=== PATIENT | female | born 1935 | race Caucasian/White ===

== ENCOUNTER 2019-01-03 21:09 | Inpatient (IN) | payer MEDICARE ==
--- NOTE | 2019-01-03 21:51 | EKG REPORT ---
SEVERITY:- ABNORMAL ECG - ATRIAL FIBRILLATION, V-RATE [id number] RIGHT AXIS DEVIATION ABNORMAL T, CONSIDER ISCHEMIA, INFERIOR LEADS : Confirmed by: Salima Macdonald MD 03-Jan-2019 21:51:25
--- NOTE | 2019-01-03 22:16 | RADIOLOGY REPORT (SQ) ---
XR CHEST 1 VIEW HISTORY: Hypotension. COMPARISON: 03/16/2016 FINDINGS: The heart size is mildly enlarged. No consolidation, pleural effusion, or pneumothorax is seen. There are no acute bony findings. IMPRESSION: No evidence of acute cardiopulmonary disease.
[2019-01-03 23:00] LABS: APPEARANCE,URINE CLOUDY; BILIRUBIN,URINE NEGATIVE (NEGATIVE); COLOR,URINE YELLOW; GLUCOSE, URINE 50 mg/dL (NEGATIVE); KETONES,URINE NEGATIVE (NEGATIVE); LEUKOCYTE ESTERASE,URINE MODERATE (NEGATIVE); NITRITE,URINE NEGATIVE (NEGATIVE); PROTEIN,URINE >=500 mg/dL (NEGATIVE); URINE SPECIFIC GRAVITY 1.011; UROBILINOGEN,URINE NEGATIVE mg/dL (<2.0)
[2019-01-03] MEDS ORDERED: NORMAL SALINE 1000 ML 500 ML IV ONE (23:36)
[2019-01-03 23:55] LABS: VENOUS BLOOD BASE EXCESS -2.4 mmol/L; VENOUS BLOOD PCO2 47.2 mmHg (35-63); VENOUS BLOOD PH 7.32 (7.30-7.42)
[2019-01-03] MEDS ORDERED: CEFTRIAXONE 1 GM/D5W RTU 1 GM/50 ML RTUPB IV ONE (23:59)
[2019-01-04] MEDS ORDERED: CEFTRIAXONE 1 GM/D5W RTU 1 GM/50 ML RTUPB IV ONE (00:10)
[2019-01-04 00:17] LABS: HEMATOCRIT 48.5 % (36.0-47.0); MEAN CORPUSCULAR VOLUME 91 fl (80-97); PLATELET COUNT 192 10^3/uL (150-450); RED BLOOD COUNT 5.34 10^6/uL (3.72-5.28); WHITE BLOOD COUNT 19.8 10^3/uL (4.0-10.5)
[2019-01-04 00:36] LABS: CREATINE KINASE MB 1.05 ng/mL (<4.55)
[2019-01-04 00:42] LABS: TROPONIN I < 0.012 ng/mL
[2019-01-04 00:51] LABS: ABSOLUTE MONOCYTES # (MANUAL) 1.2 10^3/uL (0.1-1.4); ABSOLUTE NEUTROPHILS# (MANUAL) 17.6 10^3/uL (1.7-8.2); BAND NEUTROPHILS % (MANUAL) 6 % (3-5); BASOPHILS % (MANUAL) 0 % (0-2); BURR CELLS 1+; EOSINOPHILS % (MANUAL) 0 % (0-6); LYMPHOCYTES % (MANUAL) 5 % (13-45); MONOCYTES % (MANUAL) 6 % (3-13); POIKILOCYTOSIS 1+; SEGMENTED NEUTROPHILS % (MAN) 83 % (42-78); TOTAL CELLS COUNTED 100
[2019-01-04 00:52] LABS: PLATELET COMMENT ADEQUATE
[2019-01-04] MEDS ORDERED: PANTOPRAZOLE SODIUM 40 MG VIAL IV PRN (01:32)
[2019-01-04] MEDS ORDERED: PANTOPRAZOLE SODIUM 40 MG VIAL IV ONE (01:34)
[2019-01-04 01:40] LABS: ALANINE AMINOTRANSFERASE 28 U/L (9-52); ALBUMIN 3.1 g/dL (3.5-5.0); ALKALINE PHOSPHATASE 73 U/L (38-126); ANION GAP 11 (5-19); ASPARTATE AMINO TRANSFERASE 32 U/L (14-36); BILIRUBIN,DIRECT 0.6 mg/dL (0.0-0.4); BLOOD UREA NITROGEN 28 mg/dL (7-20); CALCIUM 9.1 mg/dL (8.4-10.2); CARBON DIOXIDE 23 mmol/L (22-30); CHLORIDE 103 mmol/L (98-107); CREATINE KINASE 54 U/L (30-135); GLUCOSE 110 mg/dL (75-110); SODIUM 137.1 mmol/L (137-145); TOTAL PROTEIN 5.3 g/dL (6.3-8.2)
[2019-01-04] MEDS: MAGNESIUM SULFATE/D5W 1 GM/100 ML RTUPB IV SCH ×2 (03:17→05:59)
--- NOTE | 2019-01-04 03:36 | RADIOLOGY REPORT (SQ) ---
CT abdomen and pelvis with contrast on 01/04/2019 at 2:49 AM CLINICAL INDICATION: Generalized abdominal pain, vomiting TECHNIQUE: Multiple axial images are obtained throughout the abdomen and pelvis following the administration of IV contrast. This exam was performed according to our departmental dose-optimization program, which includes automated exposure control, adjustment of the mA and/or kV according to patient size and/or use of iterative reconstruction technique. Total DLP is 854.52 mGy*cm. COMPARISON: None FINDINGS: Abdomen: There is minimal basilar atelectasis. Vascular calcifications are noted. Gallbladder is mildly distended. Solid abdominal organs are otherwise unremarkable. There is no abdominal adenopathy. There is no free fluid or free air within the abdomen. There is bowel wall thickening of the splenic flexure and descending colon with adjacent fat stranding and abnormal mucosal enhancement in the sigmoid colon consistent with a left-sided colitis. Most likely this represents an infectious colitis but please correlate clinically. The abdominal portion of the GI tract is otherwise unremarkable. Pelvis: There is no free fluid in the pelvis. The patient is status post hysterectomy. There is no pelvic adenopathy. Pelvic portion of the GI tract is otherwise unremarkable. Degenerative changes are noted in the spine. There is grade 1 spondylolisthesis at L4-5 and L5-S1. No acute bony abnormality is noted. IMPRESSION: 1. Findings consistent with a left-sided colitis, most likely an infectious colitis but please correlate clinically. 2. No other acute abnormality.
--- NOTE | 2019-01-04 03:54 | ER Document Report ---
ED General - General Chief Complaint: General Weakness Stated Complaint: HYPOTENSION Time Seen by Provider: 01/03/19 21:17 Notes: Patient is a 83-year-old female presents to the emergency department for generalized nausea, vomiting, diarrhea and weakness. Patient states after eating dinner this evening she developed generalized nausea and vomited x1. States she overall felt very weak and 911 was alerted. EMS has given the patient 8 mg of IV Zofran and a total of 800 cc of normal saline solution. Per EMS vital signs patient's blood pressure was 80/40. Patient's denying any shortness of breath, chest pain, abdominal pain. Patient denies any blood in her vomit or dark stools. Family room states about 2 weeks ago patient's lisinopril was decreased and her diltiazem was increased due to an increase in her heart rate. Patient and family are denying any other changes to her medications. No other sick contacts. Past medical history: Hypertension, atrial fibrillation, congestive heart failure, COPD Medications: Lisinopril, Lasix, Eliquis, diltiazem, amitriptyline Allergies: None Surgical history: Hysterectomy TRAVEL OUTSIDE OF THE [place] IN LAST 30 DAYS: No - Related Data Allergies/Adverse Reactions: No Known Allergies Allergy (Unverified 09/17/11 13:38) Past Medical History - General Information source: Patient, Relative - Social History Smoking Status: Never Smoker Chew tobacco use (# tins/day): No Drug Abuse: None Family History: Reviewed & Not Pertinent Patient has suicidal ideation: No Patient has homicidal ideation: No - Past Medical History Cardiac Medical History: Reports: Hx Atrial Fibrillation, Hx Hypertension - medicated, hx CHF Denies: Hx Heart Attack Pulmonary Medical History: Denies: Hx Asthma Neurological Medical History: Denies: Hx Cerebrovascular Accident, Hx Seizures Renal/ Medical History: Denies: Hx Peritoneal Dialysis GI Medical History: Reports: Hx Hiatal Hernia. Denies: Hx Hepatitis, Hx Ulcer Infectious Medical History: Denies: Hx Hepatitis Past Surgical History: Reports: Hx Hysterectomy. Denies: Hx Mastectomy, Hx Open Heart Surgery, Hx Pacemaker Review of Systems - Review of Systems Constitutional: denies: Fever EENT: No symptoms reported Cardiovascular: No symptoms reported Respiratory: No symptoms reported Gastrointestinal: See HPI Genitourinary: denies: Burning, Dysuria Female Genitourinary: No symptoms reported Musculoskeletal: No symptoms reported Skin: No symptoms reported Hematologic/Lymphatic: No symptoms reported Neurological/Psychological: No symptoms reported Physical Exam - Notes Notes: GENERAL: Alert, interacts well. No acute distress. HEAD: Normocephalic, atraumatic. EYES: Pupils equal, round, and reactive to light. Extraocular movements intact. ENT: Oral mucosa moist, tongue midline. NECK: Full range of motion. Supple. Trachea midline. LUNGS: Clear to auscultation bilaterally, no wheezes, rales, or rhonchi. No respiratory distress. HEART: Regular rate and rhythm. No murmur ABDOMEN: Soft, non-tender. Non-distended. Bowel sounds present in all 4 quadrants. EXTREMITIES: Moves all 4 extremities spontaneously. No edema, normal radial and dorsalis pedis pulses bilaterally. No cyanosis. BACK: no cervical, thoracic, lumbar midline tenderness. No saddle anesthesia, normal distal neurovascular exam. NEUROLOGICAL: Alert and oriented x3. Normal speech. cranial nerves II through XII grossly intact PSYCH: Normal affect, normal mood. SKIN: Warm, dry, normal turgor. No rashes or lesions noted. Course - Re-evaluation Re-evalutation: Patient's labs do show a leukocytosis of 19.8. Hemoglobin hematocrit 16.0 and 48.5 respectively. Patient's potassium was noted to be 3.0. Replaced with oral and IV potassium in the emergency department. Patient's lactic acid was noted to be 4.7. Patient has a total of 1500 cc of fluid throughout her stay in the emergency department. Patient does have a history of congestive heart failure and lung sounds continue to remain clear and equal in all [place]. Patient's ur ine shows signs of urinary tract infection, sent for culture. Nursing staff brings to my attention that they did a guaiac stool at bedside due to patient's copious malodorous diarrhea. States it was positive. No melena noted on rectal physical exam. Patient CT abdomen pelvis does show potential infectious colitis. 01/04/19 04:43 Discussed this case with hospitalist Dr. Tejada who will admit the patient to IMCU. He is requesting central line if staff design engineer can not get good IV access. 22G right hand is the only access the Pt currently has, multiple attempts by staff design engineer. Discussed with Surgery Dr. London about central line placement. - Laboratory Result Diagrams: 01/03/19 23:35 01/04/19 01:05 Laboratory results interpreted by me: 01/03/19 01/03/19 01/03/19 22:30 23:35 23:39 WBC 19.8 H RBC 5.34 H Hgb 16.0 H Hct 48.5 H Seg Neuts % (Manual) 83 H Band Neutrophils % 6 H Lymphocytes % (Manual) 5 L Abs Neuts (Manual) 17.6 H Potassium BUN Creatinine Est GFR ( Amer) Est GFR (Non-Af Amer) Lactic Acid 4.7 H Direct Bilirubin Total Protein Albumin Urine Protein >=500 H Urine Glucose (UA) 50 H Urine Blood SMALL H Ur Leukocyte Esterase MODERATE H 01/04/19 01:05 WBC RBC Hgb Hct Seg Neuts % (Manual) Band Neutrophils % Lymphocytes % (Manual) Abs Neuts (Manual) Potassium 3.0 L* BUN 28 H Creatinine 1.68 H Est GFR ( Amer) 35 L Est GFR (Non-Af Amer) 29 L Lactic Acid Direct Bilirubin 0.6 H Total Protein 5.3 L Albumin 3.1 L Urine Protein Urine Glucose (UA) Urine Blood Ur Leukocyte Esterase Discharge - Discharge Clinical Impression: Hypokalemia, Lactic acidosis Urinary tract infection Qualifiers: Urinary tract infection type: acute cystitis Hematuria presence: without hematuria Qualified Code(s): N30.00 - Acute cystitis without hematuria GI bleed Qualifiers: GI bleed type/associated pathology: unspecified gastrointestinal hemorrhage type Qualified Code(s): K92.2 - Gastrointestinal hemorrhage, unspecified Sepsis Qualifiers: Sepsis type: sepsis due to unspecified organism Qualified Code(s): A41.9 - Sepsis, unspecified organism Condition: Fair Disposition: ADMITTED INPATIENT Admitting Provider: Hospitalist - Dr. Tejada Unit Admitted: [facility]
[2019-01-04] MEDS ORDERED: MAG HYDROX/AL HYDROX/SIMETH SUSP 30 ML UDCUP PO PRN (04:35)
[2019-01-04] MEDS ORDERED: IPRATROPIUM/ALBUTEROL 0.5-2.5 MG/3 ML AMPUL NEB PRN (04:35)
[2019-01-04] MEDS ORDERED: ACETAMINOPHEN 325 MG TABLET PO PRN (04:35)
[2019-01-04] MEDS ORDERED: ONDANSETRON HCL INJ/PF 4 MG/2 ML SDV IV PRN (04:35)
[2019-01-04] MEDS ORDERED: MAGNESIUM HYDROXIDE SUSP 30 ML UDCUP PO PRN (04:35)
[2019-01-04] MEDS ORDERED: ERTAPENEM SODIUM INJ 1 GM VIAL IV PRN (04:44)
--- NOTE | 2019-01-04 05:42 | Operative Report ---
Operative Report DATE OF SURGERY: 01/04/19 PREOPERATIVE DIAGNOSIS: Urosepsis, critical need for intravenous access. POSTOPERATIVE DIAGNOSIS: Urosepsis, critical need for intravenous access. OPERATION: Right femoral triple-lumen central venous catheter placement. SURGEON: ELIZABETH MARTELL ANESTHESIA: Local TISSUE REMOVED OR ALTERED: None COMPLICATIONS: None ESTIMATED BLOOD LOSS: 20 cc INTRAOPERATIVE FINDINGS: None PROCEDURE: Primary physician requested central venous access on this patient with urosepsis and inability to obtain adequate peripheral access. Patient is on anticoagulation with no prior history of deep venous thrombosis. To minimize risk of uncontrollable bleeding, femoral approach was taken. Informed consent was obtained. Patient's right groin was prepped and draped in usual sterile fashion. The right femoral vein was entered without difficulty however initially I was unable to pass the guidewire. Dark nonpulsatile blood was able to be aspirated but intermittently. With the second attempt I was able to get consistent blood aspiration that was nonpulsatile and dark. Guidewire passed easily with no resistance. The tract was dilated. Triple-lumen central venous catheter was fed via the guidewire with no resistance. The guidewire was pulled out and it had no kinks. The proximal 2 ports withdrew blood and flushed easily. The distal port would not withdraw blood but it flushed easily. This was noted with the catheter being pulled back a few centimeters and also pushed in a few centimeters. With the 2 proximal ports working well, the catheter was sutured in place. Dressings were applied. I asked the nurse to use only the 2 proximal ports. Again the 2 proximal ports withdrew blood easily and flushed easily. Patient tolerated procedure well with no apparent complications.
[2019-01-04] MEDS: HEPARIN SOD (PORCINE) 5,000 UNIT/ML 1 ML SYRINGE SUBCUT SCH ×3 (06:00→21:18)
[2019-01-04] MEDS: POTASSI CL 20 MEQ/50 ML RIDER 20 MEQ/50 ML RTUPB IV SCH ×2 (06:00→08:07)
[2019-01-04] MEDS: ERTAPENEM SODIUM 0.5 GM in NORMAL SALINE 50 ML IV SCH (06:06)
--- NOTE | 2019-01-04 06:45 | PDOC H&P ---
History of Present Illness Admission Date/PCP: 01/04/19 05:12 Patient complains of: Abdominal pain History of Present Illness: MALCOLM MERINO is a 83 year old female whose history is obtained by the record secondary to dementia. History includes dementia, paroxysmal atrial fibrillation on Eliquis, congestive heart failure and COPD. Patient presents with nausea vomiting diarrhea and weakness vomiting gastric content x1 calling EMS she is found to have a blood pressure 80/40 and started on normal saline and brought to the emergency room for evaluation recent medication changes include increased diltiazem for uncontrolled A. fib. Patient is unable to provide meaningful history. She is found to have leukocytosis of 19,000 hypokalemia of 3, a CT abdomen with left-sided colitis. She is hypotensive requiring central line placement and IV fluid resuscitation. She started on empiric antibiotics and referred to the hospitalist for admission. Past Medical History Cardiac Medical History: Reports: Atrial Fibrillation, Hypertension - medicated, hx CHF Denies: Myocardial Infarction Pulmonary Medical History: Reports: Chronic Obstructive Pulmonary Disease (COPD) Denies: Asthma Neurological Medical History: Denies: Seizures GI Medical History: Reports: Hiatal Hernia Denies: Hepatitis Hematology: Reports: Anemia - hx of Denies: Sickle Cell Disease Past Surgical History Past Surgical History: Reports: Hysterectomy Denies: Amputation, Mastectomy, Pacemaker Social History Information Source: [facility] Records Lives with: Family Smoking Status: Never Smoker Frequency of Alcohol Use: None Drugs: None - Advance Directive Resuscitation Status: Full Code Family History Family History: Other - Unknown Parental Family History Reviewed: No - Unknown Children Family History Reviewed: No - Unobtainable Sibling(s) Family History Reviewed.: No - Unobtainable Medication/Allergy Home Medications: Amitriptyline HCl [Elavil 25 Mg Tablet] 25 mg PO QHS 09/17/11 Aspirin [Aspirin 81 mg Chewable Tablet] 81 mg PO DAILY 09/17/11 Cholecalciferol (Vitamin D3) [Vitamin D] 400 unit PO DAILY 09/17/11 D 3 1,000 mg PO DAILY 09/17/11 Diltiazem HCl [Cardizem Cd 120 Mg Capsule] 120 mg PO DAILY 09/17/11 Furosemide [Lasix 20 mg Tablet] 20 mg PO QAM 09/17/11 Ibuprofen [Motrin 400 Mg Tablet] 400 mg PO PRN 09/17/11 Pravastatin Sodium 40 mg PO 09/17/11 Ranitidine HCl [Zantac] 150 mg PO BID 09/17/11 Allergies/Adverse Reactions: No Known Allergies Allergy (Unverified 09/17/11 13:38) Review of Systems ROS unobtainable: Due to mental status - Unobtainable secondary to dementia Physical Exam Vital Signs: Intake & Output 01/02/19 01/03/19 01/04/19 11:59 11:59 11:59 Intake Total 650 Balance 650 Weight 72.3 kg General appearance: PRESENT: cooperative, severe distress, well-developed, well- nourished Head exam: PRESENT: atraumatic, normocephalic Eye exam: PRESENT: conjunctiva pink, EOMI, PERRLA. ABSENT: scleral icterus Ear exam: PRESENT: normal external ear exam Mouth exam: PRESENT: moist, tongue midline Neck exam: ABSENT: carotid bruit, JVD, lymphadenopathy, thyromegaly Respiratory exam: PRESENT: clear to auscultation mak. ABSENT: rales, rhonchi, wheezes Cardiovascular exam: PRESENT: irregular rhythm, tachycardia. ABSENT: diastolic murmur, rubs, systolic murmur Pulses: PRESENT: normal dorsalis pedis pul Vascular exam: PRESENT: normal capillary refill GI/Abdominal exam: PRESENT: diminished bowel sounds, distended, hypoactive bowel sounds, soft, tenderness. ABSENT: firm, guarding, rebound, rigid Rectal exam: PRESENT: deferred Extremities exam: PRESENT: full ROM. ABSENT: calf tenderness, clubbing, pedal edema Neurological exam: PRESENT: alert, awake, oriented to person, CN II-XII grossly intact. ABSENT: motor sensory deficit Psychiatric exam: PRESENT: appropriate affect, normal mood. ABSENT: homicidal ideation, suicidal ideation Skin exam: PRESENT: dry, intact, warm. ABSENT: cyanosis, rash Results Laboratory Results: 01/03/19 23:35 01/04/19 01:05 01/03/19 01/03/19 01/03/19 22:30 23:35 23:35 WBC 19.8 H RBC 5.34 H Hgb 16.0 H Hct 48.5 H MCV 91 MCH 30.0 MCHC 33.0 RDW 14.0 Plt Count 192 Seg Neutrophils % Not Reportable Lymphocytes % Not Reportable Monocytes % Not Reportable Eosinophils % Not Reportable Basophils % Not Reportable Absolute Neutrophils Not Reportable Absolute Lymphocytes Not Reportable Absolute Monocytes Not Reportable Absolute Eosinophils Not Reportable Absolute Basophils Not Reportable VBG pH VBG pCO2 VBG HCO3 VBG Base Excess Sodium Cancelled Potassium Cancelled Chloride Cancelled Carbon Dioxide Cancelled Anion Gap Cancelled BUN Cancelled Creatinine Cancelled Est GFR ( Amer) Cancelled Est GFR (Non-Af Amer) Cancelled Glucose Cancelled Lactic Acid Calcium Cancelled Total Bilirubin Cancelled AST Cancelled ALT Cancelled Alkaline Phosphatase Cancelled Total Protein Cancelled Albumin Cancelled Lipase Cancelled Urine Color YELLOW Urine Appearance CLOUDY Urine pH 6.0 Ur Specific [place] 1.011 Urine Protein >=500 H Urine Glucose (UA) 50 H Urine Ketones NEGATIVE Urine Blood SMALL H Urine Nitrite NEGATIVE Ur Leukocyte Esterase MODERATE H Urine WBC (Auto) >182 Urine RBC (Auto) 12 01/03/19 01/03/19 01/04/19 23:39 23:39 01:05 WBC RBC Hgb Hct MCV MCH MCHC RDW Plt Count Seg Neutrophils % Lymphocytes % Monocytes % Eosinophils % Basophils % Absolute Neutrophils Absolute Lymphocytes Absolute Monocytes Absolute Eosinophils Absolute Basophils VBG pH 7.32 VBG pCO2 47.2 VBG HCO3 24.0 VBG Base Excess -2.4 Sodium 137.1 Potassium 3.0 L* Chloride 103 Carbon Dioxide 23 Anion Gap 11 BUN 28 H Creatinine 1.68 H Est GFR ( Amer) 35 L Est GFR (Non-Af Amer) 29 L Glucose 110 Lactic Acid 4.7 H Calcium 9.1 Total Bilirubin 1.0 AST 32 ALT 28 Alkaline Phosphatase 73 Total Protein 5.3 L Albumin 3.1 L Lipase 43.0 Urine Color Urine Appearance Urine pH Ur Specific [place] Urine Protein Urine Glucose (UA) Urine Ketones Urine Blood Urine Nitrite Ur Leukocyte Esterase Urine WBC (Auto) Urine RBC (Auto) 01/03/19 01/03/19 01/04/19 23:35 23:39 01:05 Creatine Kinase Cancelled 54 CK-MB (CK-2) 1.05 Troponin I < 0.012 Impressions: Chest X-Ray 01/03/19 21:20 IMPRESSION: No evidence of acute cardiopulmonary disease. Abdomen/Pelvis CT 01/03/19 21:49 IMPRESSION: 1. Findings consistent with a left-sided colitis, most likely an infectious colitis but please correlate clinically. 2. No other acute abnormality. Assessment and Plan - Diagnosis (1) Colitis Is this a current diagnosis for this admission?: Yes Plan: Likely infectious versus ischemic, ertapenem initiated, IV fluid resuscitation, follow-up blood and stool culture. (2) Urinary tract infection Qualifiers: Urinary tract infection type: acute cystitis Hematuria presence: without hematuria Qualified Code(s): N30.00 - Acute cystitis without hematuria Is this a current diagnosis for this admission?: Yes Plan: Empiric antibiotics initiated, follow-up blood and urine culture (3) Sepsis Qualifiers: Sepsis type: sepsis due to unspecified organism Qualified Code(s): A41.9 - Sepsis, unspecified organism Is this a current diagnosis for this admission?: Yes Plan: Secondary to #1 and 2. IV fluid resuscitation, empiric antibiotics initiated. Follow-up blood culture, lactic acid and CBC (4) GI bleed Qualifiers: GI bleed type/associated pathology: unspecified gastrointestinal hemorrhage type Qualified Code(s): K92.2 - Gastrointestinal hemorrhage, unspecified Is this a current diagnosis for this admission?: Yes Plan: Secondary to colitis, possibly ischemic, follow-up CBC and lactic acid (5) Hypokalemia Is this a current diagnosis for this admission?: Yes Plan: Potassium ordered, follow-up magnesium and repeat chemistry - Time Time Spent with patient: 25-34 minutes - Inpatient Certification Medical Necessity: Need Close Monitoring Due to Risk of Patient Decompensation
[2019-01-04] MEDS ORDERED: DILTIAZEM HCL 90 MG TABLET PO ONE (07:00)
[2019-01-04 07:12] LABS: ANION GAP 12 (5-19); BLOOD UREA NITROGEN 28 mg/dL (7-20); CALCIUM 8.6 mg/dL (8.4-10.2); CARBON DIOXIDE 23 mmol/L (22-30); CHLORIDE 101 mmol/L (98-107); GLUCOSE 116 mg/dL (75-110); POTASSIUM 3.5 mmol/L (3.6-5.0); SODIUM 135.5 mmol/L (137-145)
[2019-01-04 07:40] LABS: HEMATOCRIT 38.9 % (36.0-47.0); MEAN CORPUSCULAR HEMOGLOBIN 30.3 pg (27.0-33.4); MEAN CORPUSCULAR HGB CONC 33.8 g/dL (32.0-36.0); MEAN CORPUSCULAR VOLUME 90 fl (80-97); PLATELET COUNT 171 10^3/uL (150-450); RED BLOOD COUNT 4.34 10^6/uL (3.72-5.28); RED CELL DISTRIBUTION WIDTH 13.8 % (11.5-14.0)
[2019-01-04 07:56] LABS: HEMOGLOBIN 13.1 g/dL (12.0-15.5)
[2019-01-04] MEDS: NORMAL SALINE 1000 ML 1,000 ML IV PRN ×2 (07:58→12:00)
[2019-01-04 08:08] LABS: ABSOLUTE LYMPHOCYTES# (MANUAL) 1.2 10^3/uL (0.5-4.7); ABSOLUTE MONOCYTES # (MANUAL) 0.2 10^3/uL (0.1-1.4); ABSOLUTE NEUTROPHILS# (MANUAL) 22.6 10^3/uL (1.7-8.2); BAND NEUTROPHILS % (MANUAL) 9 % (3-5); BASOPHILS % (MANUAL) 0 % (0-2); EOSINOPHILS % (MANUAL) 0 % (0-6); LYMPHOCYTES % (MANUAL) 4 % (13-45); MONOCYTES % (MANUAL) 1 % (3-13); SEGMENTED NEUTROPHILS % (MAN) 85 % (42-78); TOTAL CELLS COUNTED 100
[2019-01-04 08:09] LABS: OVALOCYTES 1+; PLATELET COMMENT ADEQUATE; POIKILOCYTOSIS 1+
[2019-01-04] MEDS: DILTIAZEM HCL 90 MG TABLET PO SCH ×2 (14:44→21:18)
--- NOTE | 2019-01-04 18:19 | Progress Note ---
Provider Note Provider Note: No adverse events overnight. She was admitted with sepsis due to a colitis. She is been placed on ertapenem. She was initially hypotensive but she is gotten aggressive fluid resuscitation and now her blood pressure stabilized. She is afebrile. She had a central line placed, but only 2 of the 3 ports are working normally. Her Hemoccult was positive, her hemoglobin is 13 today down from 16, but she is not noted any bleeding, and she did get a lot of IV fluids which could account for some of the decrease in her hemoglobin. She had a colonoscopy years ago but does not remember anything being abnormal about it. Still in the ER when I saw her awaiting a bed upstairs.
[2019-01-05] MEDS ORDERED: ERTAPENEM SODIUM INJ 1 GM VIAL ONE (06:10)
[2019-01-05] MEDS: HEPARIN SOD (PORCINE) 5,000 UNIT/ML 1 ML SYRINGE SUBCUT SCH ×3 (06:10→21:14)
[2019-01-05] MEDS: DILTIAZEM HCL 90 MG TABLET PO SCH ×3 (06:10→21:20)
[2019-01-05] MEDS: ERTAPENEM SODIUM 0.5 GM in NORMAL SALINE 50 ML IV SCH (06:20)
[2019-01-05] MEDS ORDERED: ONDANSETRON HCL INJ/PF 4 MG/2 ML SDV IV PRN (10:30)
[2019-01-05] MEDS ORDERED: MORPHINE SULFATE 10 MG/ML INJ IV ONE (11:00)
[2019-01-05] MEDS ORDERED: HYDROCODONE/ACETAMINOPHEN 5-325 MG TABLET PO PRN (13:37)
[2019-01-05 14:50] LABS: HEMOGLOBIN 12.4 g/dL (12.0-15.5); MEAN CORPUSCULAR HEMOGLOBIN 30.1 pg (27.0-33.4); MEAN CORPUSCULAR HGB CONC 33.4 g/dL (32.0-36.0); MEAN CORPUSCULAR VOLUME 90 fl (80-97); PLATELET COUNT 170 10^3/uL (150-450); RED BLOOD COUNT 4.11 10^6/uL (3.72-5.28); RED CELL DISTRIBUTION WIDTH 14.3 % (11.5-14.0); WHITE BLOOD COUNT 17.8 10^3/uL (4.0-10.5)
[2019-01-05 15:22] LABS: ABSOLUTE LYMPHOCYTES# (MANUAL) 0.7 10^3/uL (0.5-4.7); ABSOLUTE MONOCYTES # (MANUAL) 0.2 10^3/uL (0.1-1.4); ABSOLUTE NEUTROPHILS# (MANUAL) 16.4 10^3/uL (1.7-8.2); BASOPHILS % (MANUAL) 2 % (0-2); EOSINOPHILS % (MANUAL) 1 % (0-6); LYMPHOCYTES % (MANUAL) 4 % (13-45); MONOCYTES % (MANUAL) 1 % (3-13); PLATELET COMMENT ADEQUATE; SEGMENTED NEUTROPHILS % (MAN) 92 % (42-78); TOTAL CELLS COUNTED 100
[2019-01-05 16:00] LABS: ANION GAP 7 (5-19); BLOOD UREA NITROGEN 19 mg/dL (7-20); CALCIUM 8.4 mg/dL (8.4-10.2); CARBON DIOXIDE 24 mmol/L (22-30); CHLORIDE 107 mmol/L (98-107); GLUCOSE 82 mg/dL (75-110); SODIUM 137.8 mmol/L (137-145)
--- NOTE | 2019-01-05 17:30 | PDOC PROGRESS REPORT ---
Subjective Progress Note for:: 01/05/19 Subjective:: No adverse events overnight. She would like to have her diet advanced and get off liquids. She was not febrile when I saw her, but she did have some chills. She says overall she is feeling better. She still has a little bit of lower abdominal discomfort. Reason For Visit: SEPSIS,COLITIS,UTI HYPOKALEMIA Physical Exam Vital Signs: Temp Pulse Resp BP Pulse Ox 98.0 F 97 16 145/73 H 100 01/05/19 11:13 01/05/19 11:13 01/05/19 11:13 01/05/19 11:13 01/05/19 11:13 Intake & Output 01/04/19 01/05/19 01/06/19 06:59 06:59 06:59 Intake Total 700 4388 112 Output Total 75 Balance 700 4313 112 Weight 72.3 kg 67.7 kg 67.7 kg General appearance: PRESENT: cooperative, disheveled, mild distress Respiratory exam: PRESENT: clear to auscultation mak, symmetrical, tachypnea, unlabored. ABSENT: accessory muscle use, crackles, prolonged expiratory phas, rhonchi, wheezes Cardiovascular exam: PRESENT: RRR, +S1, +S2 Pulses: PRESENT: normal carotid pulses Vascular exam: PRESENT: normal capillary refill GI/Abdominal exam: PRESENT: hypoactive bowel sounds, soft, tenderness - Lower abdomen. ABSENT: distended, guarding, rebound Extremities exam: ABSENT: clubbing, pedal edema Musculoskeletal exam: PRESENT: normal inspection. ABSENT: deformity Neurological exam: PRESENT: alert, awake, oriented to person, oriented to place, oriented to situation Psychiatric exam: PRESENT: flat affect, normal mood Skin exam: PRESENT: dry, warm Results Laboratory Results: 01/05/19 14:15 01/05/19 15:20 01/05/19 01/05/19 01/05/19 14:15 14:15 15:20 WBC 17.8 H RBC 4.11 Hgb 12.4 Hct 37.0 MCV 90 MCH 30.1 MCHC 33.4 RDW 14.3 H Plt Count 170 Seg Neutrophils % Not Reportable Lymphocytes % Not Reportable Monocytes % Not Reportable Eosinophils % Not Reportable Basophils % Not Reportable Absolute Neutrophils Not Reportable Absolute Lymphocytes Not Reportable Absolute Monocytes Not Reportable Absolute Eosinophils Not Reportable Absolute Basophils Not Reportable Sodium Cancelled 137.8 Potassium Cancelled 4.0 Chloride Cancelled 107 Carbon Dioxide Cancelled 24 Anion Gap Cancelled 7 BUN Cancelled 19 Creatinine Cancelled 1.11 Est GFR ( Amer) Cancelled 57 L Est GFR (Non-Af Amer) Cancelled 47 L Glucose Cancelled 82 Calcium Cancelled 8.4 01/03/19 22:30 Catheterized Urine Urine Culture - Final NO GROWTH 2 DAYS 01/03/19 01/03/19 01/04/19 23:35 23:39 01:05 Creatine Kinase Cancelled 54 CK-MB (CK-2) 1.05 Troponin I < 0.012 Impressions: Chest X-Ray 01/03/19 21:20 IMPRESSION: No evidence of acute cardiopulmonary disease. Abdomen/Pelvis CT 01/03/19 21:49 IMPRESSION: 1. Findings consistent with a left-sided colitis, most likely an infectious colitis but please correlate clinically. 2. No other acute abnormality. Assessment and Plan - Diagnosis (1) Sepsis Qualifiers: Sepsis type: sepsis due to unspecified organism Qualified Code(s): A41.9 - Sepsis, unspecified organism Is this a current diagnosis for this admission?: Yes Plan: Due to her colitis and her bacteremia, she has a gram-negative raegan growing in the blood, currently on ertapenem, awaiting identification and susceptibility. (2) Bacteremia due to Gram-negative bacteria Is this a current diagnosis for this admission?: Yes Plan: As noted above (3) Colitis Is this a current diagnosis for this admission?: Yes Plan: As noted above (4) GI bleed Qualifiers: GI bleed type/associated pathology: unspecified gastrointestinal hemorrhage type Qualified Code(s): K92.2 - Gastrointestinal hemorrhage, unspecified Is this a current diagnosis for this admission?: Yes Plan: She has a known colitis which is infectious, the organism is not known at this time, and in this setting a colonoscopy would not be appropriate due to the increased risk of perforation. Have recommended medical management at this time, and that she have outpatient follow-up for colonoscopy. She said she had a colonoscopy several years ago and it was unremarkable. (5) Urinary tract infection Qualifiers: Urinary tract infection type: acute cystitis Hematuria presence: without hematuria Qualified Code(s): N30.00 - Acute cystitis without hematuria Is this a current diagnosis for this admission?: Yes Plan: This was ruled out. Urine culture was negative. - Time Time Spent with patient: 25-34 minutes - Inpatient Certification Based on my medical assessment, after consideration of the patient's comorbidities, presenting symptoms, or acuity I expect that the services needed warrant INPATIENT care.: Yes I certify that my determination is in accordance with my understanding of Medicare's requirements for reasonable and necessary INPATIENT services [42 CFR 412.3e].: Yes Medical Necessity: Need Close Monitoring Due to Risk of Patient Decompensation, Need For Continuous Telemetry Monitoring, Need for IV Antibiotics
[2019-01-06] MEDS: DILTIAZEM HCL 90 MG TABLET PO SCH ×3 (05:32→22:17)
[2019-01-06] MEDS: ERTAPENEM SODIUM 0.5 GM in NORMAL SALINE 50 ML IV SCH (05:32)
[2019-01-06] MEDS: HEPARIN SOD (PORCINE) 5,000 UNIT/ML 1 ML SYRINGE SUBCUT SCH ×3 (05:32→22:15)
[2019-01-06 06:28] LABS: ABSOLUTE EOSINOPHILS # (AUTO) 0.1 10^3/uL (0.0-0.6); ABSOLUTE LYMPHOCYTES (AUTO) 0.7 10^3/uL (0.5-4.7); ABSOLUTE MONOCYTES (AUTO) 0.4 10^3/uL (0.1-1.4); ABSOLUTE NEUT (AUTO) 11.4 10^3/uL (1.7-8.2); BASOPHILS % (AUTO) 0.3 % (0-2); EOSINOPHILS % (AUTO) 0.8 % (0-6); HEMATOCRIT 34.9 % (36.0-47.0); HEMOGLOBIN 11.6 g/dL (12.0-15.5); LYMPHOCYTES % (AUTO) 5.3 % (13-45); MEAN CORPUSCULAR HEMOGLOBIN 30.1 pg (27.0-33.4); MEAN CORPUSCULAR HGB CONC 33.3 g/dL (32.0-36.0); MEAN CORPUSCULAR VOLUME 90 fl (80-97); MONOCYTES % (AUTO) 3.3 % (3-13); PLATELET COUNT 140 10^3/uL (150-450); RED BLOOD COUNT 3.86 10^6/uL (3.72-5.28); RED CELL DISTRIBUTION WIDTH 13.9 % (11.5-14.0); SEGMENTED NEUTROPHILS % (AUTO) 90.3 % (42-78); TOTAL CELLS COUNTED % (AUTO) 100 %; WHITE BLOOD COUNT 12.6 10^3/uL (4.0-10.5)
[2019-01-06 06:48] LABS: ANION GAP 5 (5-19); BLOOD UREA NITROGEN 17 mg/dL (7-20); CALCIUM 8.3 mg/dL (8.4-10.2); CARBON DIOXIDE 24 mmol/L (22-30); CHLORIDE 108 mmol/L (98-107); GLUCOSE 85 mg/dL (75-110); POTASSIUM 3.7 mmol/L (3.6-5.0); SODIUM 137.3 mmol/L (137-145)
--- NOTE | 2019-01-06 10:09 | PDOC PROGRESS REPORT ---
Subjective Progress Note for:: 01/06/19 Subjective:: MALCOLM MERINO is a 83 year old female whose history is obtained by the record secondary to dementia. History includes dementia, paroxysmal atrial fibrillation on Eliquis, congestive heart failure and COPD. Patient presents with nausea vomiting diarrhea and weakness vomiting gastric content x1 calling EMS she is found to have a blood pressure 80/40 and started on normal saline and brought to the emergency room for evaluation recent medication changes include increased diltiazem for uncontrolled A. fib. Patient is unable to provide meaningful history. She is found to have leukocytosis of 19,000 hypokalemia of 3, a CT abdomen with left-sided colitis. She is hypotensive requiring central line placement and IV fluid resuscitation. She started on empiric antibiotics and referred to the hospitalist for admission. 01/06/2019. No acute events overnight. Persistent right lower quadrant abdominal pain which is improving as compared to yesterday, patient is passing flatus and having bowel movements. Denies any fever, chills, shortness of breath, chest pain, diarrhea, constipation or any urinary symptoms. On my encounter patient is comfortably resting in her bed alert oriented x3 cooperative with physical examination. Left lower quadrant tender to palpation with guarding, no rebound. Reason For Visit: SEPSIS,COLITIS,UTI HYPOKALEMIA Physical Exam Vital Signs: Temp Pulse Resp BP Pulse Ox 97.9 F 82 16 121/67 94 01/06/19 03:47 01/06/19 03:47 01/06/19 03:47 01/06/19 03:47 01/06/19 03:47 Intake & Output 01/05/19 01/06/19 01/07/19 06:59 06:59 06:59 Intake Total 4388 497 Output Total 75 200 Balance 4313 297 Weight 67.7 kg 64.7 kg General appearance: PRESENT: no acute distress, well-developed, well-nourished Head exam: PRESENT: atraumatic, normocephalic Neck exam: ABSENT: carotid bruit, JVD, lymphadenopathy, thyromegaly Respiratory exam: PRESENT: clear to auscultation mak. ABSENT: rales, rhonchi, wheezes Cardiovascular exam: PRESENT: RRR. ABSENT: diastolic murmur, rubs, systolic murmur GI/Abdominal exam: PRESENT: guarding, tenderness - Left lower quadrant Extremities exam: PRESENT: full ROM. ABSENT: calf tenderness, clubbing, pedal edema Neurological exam: PRESENT: alert, awake, oriented to person, oriented to place, oriented to time, oriented to situation, CN II-XII grossly intact. ABSENT: mo tor sensory deficit Results Laboratory Results: 01/06/19 05:30 01/06/19 05:30 01/05/19 01/05/19 01/05/19 14:15 14:15 15:20 WBC 17.8 H RBC 4.11 Hgb 12.4 Hct 37.0 MCV 90 MCH 30.1 MCHC 33.4 RDW 14.3 H Plt Count 170 Seg Neutrophils % Not Reportable Lymphocytes % Not Reportable Monocytes % Not Reportable Eosinophils % Not Reportable Basophils % Not Reportable Absolute Neutrophils Not Reportable Absolute Lymphocytes Not Reportable Absolute Monocytes Not Reportable Absolute Eosinophils Not Reportable Absolute Basophils Not Reportable Sodium Cancelled 137.8 Potassium Cancelled 4.0 Chloride Cancelled 107 Carbon Dioxide Cancelled 24 Anion Gap Cancelled 7 BUN Cancelled 19 Creatinine Cancelled 1.11 Est GFR ( Amer) Cancelled 57 L Est GFR (Non-Af Amer) Cancelled 47 L Glucose Cancelled 82 Calcium Cancelled 8.4 01/06/19 01/06/19 05:30 05:30 WBC 12.6 H RBC 3.86 Hgb 11.6 L Hct 34.9 L MCV 90 MCH 30.1 MCHC 33.3 RDW 13.9 Plt Count 140 L Seg Neutrophils % 90.3 H Lymphocytes % 5.3 L Monocytes % 3.3 Eosinophils % 0.8 Basophils % 0.3 Absolute Neutrophils 11.4 H Absolute Lymphocytes 0.7 Absolute Monocytes 0.4 Absolute Eosinophils 0.1 Absolute Basophils 0.0 Sodium 137.3 Potassium 3.7 Chloride 108 H Carbon Dioxide 24 Anion Gap 5 BUN 17 Creatinine 1.09 Est GFR ( Amer) 58 L Est GFR (Non-Af Amer) 48 L Glucose 85 Calcium 8.3 L 01/04/19 01:00 Blood Blood Culture - Final Enterobacter Cloacae 01/04/19 01:05 Blood Blood Culture - Final Enterobacter Cloacae 01/03/19 22:30 Catheterized Urine Urine Culture - Final NO GROWTH 2 DAYS 01/03/19 01/03/19 01/04/19 23:35 23:39 01:05 Creatine Kinase Cancelled 54 CK-MB (CK-2) 1.05 Troponin I < 0.012 Impressions: Chest X-Ray 01/03/19 21:20 IMPRESSION: No evidence of acute cardiopulmonary disease. Abdomen/Pelvis CT 01/03/19 21:49 IMPRESSION: 1. Findings consistent with a left-sided colitis, most likely an infectious colitis but please correlate clinically. 2. No other acute abnormality. Assessment and Plan - Diagnosis (1) Bacteremia due to Gram-negative bacteria Is this a current diagnosis for this admission?: Yes Plan: 01/04/2019 blood cultures culture 2/2 + for Enterobacter cloacae. Resistant to Augmentin, ampicillin and cefazolin. Day 3 of ertapenem. Consult ID specialist for further recommendation about the need for antibiotic course and the need for 2D echo. Repeat blood cultures. Continue ertapenem. (2) Colitis Is this a current diagnosis for this admission?: Yes Plan: Improving. Continue empiric antibiotics. (3) Sepsis Qualifiers: Sepsis type: sepsis due to unspecified organism Qualified Code(s): A41.9 - Sepsis, unspecified organism Is this a current diagnosis for this admission?: Yes Plan: Resolved. Likely due to gram-negative raegan bacteremia. SBP 121-145, respiratory rate 16, saturating 94% on 1 L nasal cannula. Continue empiric antibiotics. (4) Urinary tract infection Qualifiers: Urinary tract infection type: acute cystitis Hematuria presence: without hematuria Qualified Code(s): N30.00 - Acute cystitis without hematuria Is this a current diagnosis for this admission?: Yes Plan: UA positive on admission. Urine culture -72 hours. Asymptomatic. (5) Guaiac positive stools Is this a current diagnosis for this admission?: No Plan: Likely due to infectious colitis versus GI bleed. Not a candidate for any intervention at this point due to infectious colitis which increases the risk of perforation. Her H&H. Supportive transfusions. She has had a negative colonoscopy several years ago. Outpatient GI and PCP follow-up. (6) History of atrial fibrillation Is this a current diagnosis for this admission?: No Plan: Rate controlled. Continue Cardizem. Hold Eliquis due to recent GI bleed. (7) History of CHF (congestive heart failure) Is this a current diagnosis for this admission?: No Plan: Does not seem to be on acute CHF exacerbation. Monitor volume status. Restart lisinopril low-dose up titrate as tolerated. No echo available. Outpatient cardiology follow-up.
--- NOTE | 2019-01-06 21:28 | Progress Note ---
Provider Note Provider Note: ID Consult Note Asked by Dr Harvey to comment on duration of therapy and need for TTE. Reviewed pt's chart. Pt not seen or examined. Ms Gil is a 83 year old woman with PMH including dementia, COPD, AF on Eliquis, and CHF who presented on 01/04 with nausea, vomiting, diarrhea and generalized weakness that developed after eating dinner on 01/04. Family denied sick contacts. On presentation, she was found to be tachycardic and hypotensive. Afebrile. On admission exam, she had distended abdomen and hypoactive BS, tenderness, but no rigidity. Lab abnormalities included leukocytosis, hemoconcentration, hypokalemia, elevated lactic acid 4.7, elevated creatinine. Imaging included CXR that showed no acute cardiopulmonary disease. CT abd/pelvis with IV contrast showed bowel wall thickening from splenic flecture and descending colon with adjacent fat stranding and abnormal submucosal enhancement in the sigmoid colon consistent with a left-sided colitis. She was admitted for suspected ischemic vs infectious colitis. Empirically ertapenem was started, and blood cultures drawn on 01/04 grew Enterobacer cloacae. Her VS normalized, and she reported improving LLQ abdominal pain. Impression/Recommendations Sepsis due to Enterobacter cloacae bacteremia, secondary to L sided ischemic c olitis - Postprandial onset of abdominal symptoms in an older adult with L colon involvement, particularly a watershed area like the splenic flexure, is suggestive of colonic ischemia. Loss of normal mucosal integrity in the setting of ischemic injury to the gut can lead to translocation of gut bacteria, such as Enterobacter cloacae, into the bloodstream. - Duration of treatment: I would plan on treating for 7-10 days, depending on how she responds. An RCT and several retrospective studies suggest the duration of therapy for uncomplicated Gram negative bacteremia can be as short as 7 days, as long as the patient has acheived clinical stability in the expected time frame and source control taken place / no deep-seated focus of infection is present. For colonic ischemia, the [employer]'s guidelines suggest a 7-day course of therapy should be considered as long as the patient is symptomatically improved after 72 h. - Choice of abx: Consider de-escalating from IV ertapenem to IV cefepime 2g q8h + Flagyl at this point. When she is ready to go home, Cipro + Flagyl is a PO switch option to complete treatment. Based on the susceptibility results for her Enterobacter, she has options that allow continued effective treatment but carbapenem use to be conserved. Although Enterobacter cloacae can have inducible AmpC beta-lactamases, cefepime is stable against AmpC, and Flagyl provides highly reliable anaerobic activity. - Echo should not be needed to screen for IE. A typical cause of endocarditis, such as Staph aureus bacteremia or some cases of Enterococcus bacteremia are different, but Gram negative enterics like Enterobacter or E coli do not have nearly the same predilection for seeding heart valves. Timothy Tate MD [facility] Infectious Diseases pager [phone]
[2019-01-06] MEDS: SIMVASTATIN 40 MG TABLET PO SCH (22:17)
[2019-01-07 04:47] LABS: ABSOLUTE EOSINOPHILS # (AUTO) 0.1 10^3/uL (0.0-0.6); ABSOLUTE LYMPHOCYTES (AUTO) 0.6 10^3/uL (0.5-4.7); ABSOLUTE MONOCYTES (AUTO) 0.4 10^3/uL (0.1-1.4); ABSOLUTE NEUT (AUTO) 5.8 10^3/uL (1.7-8.2); BASOPHILS % (AUTO) 0.3 % (0-2); HEMATOCRIT 33.1 % (36.0-47.0); HEMOGLOBIN 11.4 g/dL (12.0-15.5); MEAN CORPUSCULAR HEMOGLOBIN 30.7 pg (27.0-33.4); MEAN CORPUSCULAR HGB CONC 34.5 g/dL (32.0-36.0); MEAN CORPUSCULAR VOLUME 89 fl (80-97); MONOCYTES % (AUTO) 5.8 % (3-13); PLATELET COUNT 161 10^3/uL (150-450); RED BLOOD COUNT 3.73 10^6/uL (3.72-5.28); RED CELL DISTRIBUTION WIDTH 13.7 % (11.5-14.0); SEGMENTED NEUTROPHILS % (AUTO) 82.9 % (42-78); TOTAL CELLS COUNTED % (AUTO) 100 %; WHITE BLOOD COUNT 7.1 10^3/uL (4.0-10.5)
[2019-01-07 05:01] LABS: ALANINE AMINOTRANSFERASE 26 U/L (9-52); ALBUMIN 2.5 g/dL (3.5-5.0); ALKALINE PHOSPHATASE 62 U/L (38-126); ASPARTATE AMINO TRANSFERASE 25 U/L (14-36); BILIRUBIN,DIRECT 0.3 mg/dL (0.0-0.4); BILIRUBIN,TOTAL 0.6 mg/dL (0.2-1.3); BLOOD UREA NITROGEN 13 mg/dL (7-20); CALCIUM 8.5 mg/dL (8.4-10.2); CHLORIDE 109 mmol/L (98-107); GLUCOSE 91 mg/dL (75-110); POTASSIUM 3.3 mmol/L (3.6-5.0); SODIUM 139.4 mmol/L (137-145); TOTAL PROTEIN 4.7 g/dL (6.3-8.2)
[2019-01-07 05:06] LABS: CARBON DIOXIDE 26 mmol/L (22-30)
[2019-01-07] MEDS: DILTIAZEM HCL 90 MG TABLET PO SCH ×3 (05:09→21:43)
[2019-01-07] MEDS: HEPARIN SOD (PORCINE) 5,000 UNIT/ML 1 ML SYRINGE SUBCUT SCH ×3 (05:09→21:42)
[2019-01-07 05:14] LABS: ANION GAP 4 (5-19)
[2019-01-07] MEDS ORDERED: ERTAPENEM SODIUM 1 GM in NORMAL SALINE 50 ML IV SCH (06:00)
[2019-01-07] MEDS: ACETAMINOPHEN 325 MG TABLET PO PRN (09:47)
[2019-01-07] MEDS ORDERED: LISINOPRIL 5 MG TABLET PO SCH (10:00)
--- NOTE | 2019-01-07 11:30 | PDOC PROGRESS REPORT ---
Subjective Progress Note for:: 01/07/19 Subjective:: MALCOLM MERINO is a 83 year old female whose history is obtained by the record secondary to dementia. History includes dementia, paroxysmal atrial fibrillation on Eliquis, congestive heart failure and COPD. Patient presents with nausea vomiting diarrhea and weakness vomiting gastric content x1 calling EMS she is found to have a blood pressure 80/40 and started on normal saline and brought to the emergency room for evaluation recent medication changes include increased diltiazem for uncontrolled A. fib. Patient is unable to provide meaningful history. She is found to have leukocytosis of 19,000 hypokalemia of 3, a CT abdomen with left-sided colitis. She is hypotensive requiring central line placement and IV fluid resuscitation. She started on empiric antibiotics and referred to the hospitalist for admission. 01/06/2019. No acute events overnight. Persistent right lower quadrant abdominal pain which is improving as compared to yesterday, patient is passing flatus and having bowel movements. Denies any fever, chills, shortness of breath, chest pain, diarrhea, constipation or any urinary symptoms. On my encounter patient is comfortably resting in her bed alert oriented x3 cooperative with physical examination. Left lower quadrant tender to palpation with guarding, no rebound. 01/07/2019. No acute events overnight. Abdominal pain is improving, patient is passing flatus however has not had any bowel movement for the last 2 days. Denies any fever, chills, nausea, vomiting, diarrhea, or any urinary symptoms. Reason For Visit: SEPSIS,COLITIS,UTI HYPOKALEMIA Physical Exam Vital Signs: Temp Pulse Resp BP Pulse Ox 98.3 F 84 16 134/80 H 97 01/07/19 07:16 01/07/19 07:16 01/07/19 07:16 01/07/19 07:16 01/07/19 07:16 Intake & Output 01/06/19 01/07/19 01/08/19 06:59 06:59 06:59 Intake Total 497 1142 Output Total 200 Balance 297 1142 Weight 64.7 kg 68.6 kg General appearance: PRESENT: no acute distress, well-developed, well-nourished Head exam: PRESENT: atraumatic, normocephalic Neck exam: ABSENT: carotid bruit, JVD, lymphadenopathy, thyromegaly Respiratory exam: PRESENT: clear to auscultation mak. ABSENT: rales, rhonchi, wheezes Cardiovascular exam: PRESENT: RRR. ABSENT: diastolic murmur, rubs, systolic murmur GI/Abdominal exam: PRESENT: guarding, tenderness - Left lower quadrant Neurological exam: PRESENT: alert, awake, oriented to person, oriented to place, oriented to time, oriented to situation, CN II-XII grossly intact. ABSENT: motor sensory deficit Results Laboratory Results: 01/07/19 04:36 01/07/19 04:36 01/07/19 01/07/19 04:36 04:36 WBC 7.1 RBC 3.73 Hgb 11.4 L Hct 33.1 L MCV 89 MCH 30.7 MCHC 34.5 RDW 13.7 Plt Count 161 Seg Neutrophils % 82.9 H Lymphocytes % 9.0 L Monocytes % 5.8 Eosinophils % 2.0 Basophils % 0.3 Absolute Neutrophils 5.8 Absolute Lymphocytes 0.6 Absolute Monocytes 0.4 Absolute Eosinophils 0.1 Absolute Basophils 0.0 Sodium 139.4 Potassium 3.3 L Chloride 109 H Carbon Dioxide 26 Anion Gap 4 L BUN 13 Creatinine 0.98 Est GFR ( Amer) > 60 Est GFR (Non-Af Amer) 54 L Glucose 91 Calcium 8.5 Magnesium 2.0 Total Bilirubin 0.6 AST 25 ALT 26 Alkaline Phosphatase 62 Total Protein 4.7 L Albumin 2.5 L 01/04/19 01:00 Blood Blood Culture - Final Enterobacter Cloacae 01/04/19 01:05 Blood Blood Culture - Final Enterobacter Cloacae 01/03/19 01/03/19 01/04/19 23:35 23:39 01:05 Creatine Kinase Cancelled 54 CK-MB (CK-2) 1.05 Troponin I < 0.012 Impressions: Chest X-Ray 01/03/19 21:20 IMPRESSION: No evidence of acute cardiopulmonary disease. Abdomen/Pelvis CT 01/03/19 21:49 IMPRESSION: 1. Findings consistent with a left-sided colitis, most likely an infectious colitis but please correlate clinically. 2. No other acute abnormality. Assessment and Plan - Diagnosis (1) Bacteremia due to Gram-negative bacteria Is this a current diagnosis for this admission?: Yes Plan: 01/04/2019 blood cultures culture 2/2 + for Enterobacter cloacae. Resistant to Augmentin, ampicillin and cefazolin. Day 3 of ertapenem. 01/07/2019 ertapenem as per ID recommendation. Switch to IV cefepime 2 g q. 8 and Flagyl 500 p.o. 3 times daily to complete 7 days of total antibiotics as per ID recommendation. Day 4/7 of antibiotics. No 2D echo recommended as per IDs note. Patient could be switched to Cipro plus Flagyl p.o. once ready to be discharged home. (2) Colitis Is this a current diagnosis for this admission?: Yes Plan: Improving. Guarding and severe TTP on left lower quadrant. Day 3 of ertapenem. 01/07/2019 ertapenem as per ID recommendation. Switch to IV cefepime 2 g q. 8 and Flagyl 500 p.o. 3 times daily to complete 7 days of total antibiotics as per ID recommendation. Day 4/7 of antibiotics. Patient could be switched to Cipro plus Flagyl p.o. once ready to be discharged home. (3) Sepsis Qualifiers: Sepsis type: sepsis due to unspecified organism Qualified Code(s): A41.9 - Sepsis, unspecified organism Is this a current diagnosis for this admission?: Yes Plan: Resolved. Likely due to gram-negative raegan bacteremia. Continue empiric antibiotics. (4) Urinary tract infection Qualifiers: Urinary tract infection type: acute cystitis Hematuria presence: without hematuria Qualified Code(s): N30.00 - Acute cystitis without hematuria Is this a current diagnosis for this admission?: Yes Plan: UA positive on admission. Urine culture -72 hours. Asymptomatic. (5) Guaiac positive stools Is this a current diagnosis for this admission?: No Plan: Likely due to infectious colitis versus GI bleed. Not a candidate for any intervention at this point due to infectious colitis which increases the risk of perforation. Her H&H. Supportive transfusions. She has had a negative colonoscopy several years ago. Outpatient GI and PCP follow-up. (6) History of atrial fibrillation Is this a current diagnosis for this admission?: No Plan: Rate controlled. Continue Cardizem. Hold Eliquis due to recent GI bleed. (7) History of CHF (congestive heart failure) Is this a current diagnosis for this admission?: No Plan: Does not seem to be on acute CHF exacerbation. Monitor volume status. Restart lisinopril low-dose up titrate as tolerated. No echo available. Outpatient cardiology follow-up. (8) CHUCK (acute kidney injury) Is this a current diagnosis for this admission?: Yes Plan: Likely prerenal due to volume depletion and sepsis on admission. Resolved. (9) Hypokalemia Is this a current diagnosis for this admission?: Yes Plan: Replaced. CMP tomorrow.
[2019-01-07] MEDS ORDERED: POTASSIUM CHLORIDE 20 MEQ/15 ML UDCUP PO ONE ×2 (11:32→14:00)
[2019-01-07] MEDS: CEFEPIME 2 GM/D5W RTU 2 GM/50 ML RTUPB IV SCH ×2 (14:29→21:42)
[2019-01-07] MEDS: METRONIDAZOLE 500 MG TABLET PO SCH ×2 (14:30→21:43)
[2019-01-07] MEDS: SIMVASTATIN 40 MG TABLET PO SCH (21:43)
[2019-01-08 04:59] LABS: ABSOLUTE EOSINOPHILS # (AUTO) 0.2 10^3/uL (0.0-0.6); ABSOLUTE LYMPHOCYTES (AUTO) 0.8 10^3/uL (0.5-4.7); ABSOLUTE MONOCYTES (AUTO) 0.6 10^3/uL (0.1-1.4); ABSOLUTE NEUT (AUTO) 5.6 10^3/uL (1.7-8.2); BASOPHILS % (AUTO) 0.5 % (0-2); EOSINOPHILS % (AUTO) 2.3 % (0-6); HEMATOCRIT 34.2 % (36.0-47.0); HEMOGLOBIN 11.6 g/dL (12.0-15.5); LYMPHOCYTES % (AUTO) 10.9 % (13-45); MEAN CORPUSCULAR HEMOGLOBIN 30.2 pg (27.0-33.4); MEAN CORPUSCULAR VOLUME 89 fl (80-97); PLATELET COUNT 186 10^3/uL (150-450); RED BLOOD COUNT 3.84 10^6/uL (3.72-5.28); RED CELL DISTRIBUTION WIDTH 13.4 % (11.5-14.0); SEGMENTED NEUTROPHILS % (AUTO) 77.3 % (42-78); TOTAL CELLS COUNTED % (AUTO) 100 %; WHITE BLOOD COUNT 7.2 10^3/uL (4.0-10.5)
[2019-01-08 05:34] LABS: ALANINE AMINOTRANSFERASE 30 U/L (9-52); ALBUMIN 2.7 g/dL (3.5-5.0); ALKALINE PHOSPHATASE 65 U/L (38-126); ANION GAP 5 (5-19); ASPARTATE AMINO TRANSFERASE 25 U/L (14-36); BILIRUBIN,DIRECT 0.3 mg/dL (0.0-0.4); BILIRUBIN,TOTAL 0.5 mg/dL (0.2-1.3); BLOOD UREA NITROGEN 10 mg/dL (7-20); CALCIUM 8.6 mg/dL (8.4-10.2); CARBON DIOXIDE 26 mmol/L (22-30); CHLORIDE 108 mmol/L (98-107); GLUCOSE 97 mg/dL (75-110); POTASSIUM 3.5 mmol/L (3.6-5.0); TOTAL PROTEIN 4.5 g/dL (6.3-8.2)
[2019-01-08] MEDS: DILTIAZEM HCL 90 MG TABLET PO SCH ×3 (05:35→21:20)
[2019-01-08] MEDS: METRONIDAZOLE 500 MG TABLET PO SCH ×3 (05:35→21:20)
[2019-01-08] MEDS: HEPARIN SOD (PORCINE) 5,000 UNIT/ML 1 ML SYRINGE SUBCUT SCH ×3 (05:36→21:20)
[2019-01-08] MEDS: CEFEPIME 2 GM/D5W RTU 2 GM/50 ML RTUPB IV SCH ×3 (05:36→21:20)
[2019-01-08] MEDS: ACETAMINOPHEN 325 MG TABLET PO PRN (10:07)
[2019-01-08] MEDS: LISINOPRIL 10 MG TABLET PO SCH (10:07)
[2019-01-08] MEDS ORDERED: POTASSIUM CHLORIDE 20 MEQ/15 ML UDCUP PO ONE (11:15)
--- NOTE | 2019-01-08 16:26 | PDOC PROGRESS REPORT ---
Subjective Progress Note for:: 01/08/19 Subjective:: MALCOLM MERINO is a 83 year old female whose history is obtained by the record secondary to dementia. History includes dementia, paroxysmal atrial fibrillation on Eliquis, congestive heart failure and COPD. Patient presents with nausea vomiting diarrhea and weakness vomiting gastric content x1 calling EMS she is found to have a blood pressure 80/40 and started on normal saline and brought to the emergency room for evaluation recent medication changes include increased diltiazem for uncontrolled A. fib. Patient is unable to provide meaningful history. She is found to have leukocytosis of 19,000 hypokalemia of 3, a CT abdomen with left-sided colitis. She is hypotensive requiring central line placement and IV fluid resuscitation. She started on empiric antibiotics and referred to the hospitalist for admission. 01/06/2019. No acute events overnight. Persistent right lower quadrant abdominal pain which is improving as compared to yesterday, patient is passing flatus and having bowel movements. Denies any fever, chills, shortness of breath, chest pain, diarrhea, constipation or any urinary symptoms. On my encounter patient is comfortably resting in her bed alert oriented x3 cooperative with physical examination. Left lower quadrant tender to palpation with guarding, no rebound. 01/07/2019. No acute events overnight. Abdominal pain is improving, patient is passing flatus however has not had any bowel movement for the last 2 days. Denies any fever, chills, nausea, vomiting, diarrhea, or any urinary symptoms. 01/08/2019. No acute events overnight. Abdominal pain has improved. Patient is passing flatus and has been having bowel movements. His any fever, chills, nausea, vomiting constipation or any urinary symptoms. Reason For Visit: SEPSIS,COLITIS,UTI HYPOKALEMIA Physical Exam Vital Signs: Temp Pulse Resp BP Pulse Ox 98.3 F 102 H 20 152/85 H 99 01/08/19 16:00 01/08/19 16:00 01/08/19 16:00 01/08/19 16:00 01/08/19 16:00 Intake & Output 01/07/19 01/08/19 01/09/19 06:59 06:59 06:59 Intake Total 1144 945 237 Output Total 4246 700 Balance 7385 -077 -123 Weight 68.6 kg 67.8 kg General appearance: PRESENT: no acute distress, well-developed, well-nourished Head exam: PRESENT: atraumatic, normocephalic Neck exam: ABSENT: carotid bruit, JVD, lymphadenopathy, thyromegaly Respiratory exam: PRESENT: clear to auscultation mak. ABSENT: rales, rhonchi, wheezes Cardiovascular exam: PRESENT: RRR. ABSENT: diastolic murmur, rubs, systolic murmur GI/Abdominal exam: PRESENT: normal bowel sounds, soft, tenderness - Left lower quadrant.. ABSENT: distended, guarding, mass, organolmegaly, rebound Neurological exam: PRESENT: alert, awake, oriented to person, oriented to place, oriented to time, oriented to situation, CN II-XII grossly intact. ABSENT: motor sensory deficit Results Laboratory Results: 01/08/19 04:45 01/08/19 04:45 01/08/19 01/08/19 04:45 04:45 WBC 7.2 RBC 3.84 Hgb 11.6 L Hct 34.2 L MCV 89 MCH 30.2 MCHC 34.0 RDW 13.4 Plt Count 186 Seg Neutrophils % 77.3 Lymphocytes % 10.9 L Monocytes % 9.0 Eosinophils % 2.3 Basophils % 0.5 Absolute Neutrophils 5.6 Absolute Lymphocytes 0.8 Absolute Monocytes 0.6 Absolute Eosinophils 0.2 Absolute Basophils 0.0 Sodium 139.0 Potassium 3.5 L Chloride 108 H Carbon Dioxide 26 Anion Gap 5 BUN 10 Creatinine 0.91 Est GFR ( Amer) > 60 Est GFR (Non-Af Amer) 59 L Glucose 97 Calcium 8.6 Magnesium 1.8 Total Bilirubin 0.5 AST 25 ALT 30 Alkaline Phosphatase 65 Total Protein 4.5 L Albumin 2.7 L 01/03/19 01/03/19 01/04/19 23:35 23:39 01:05 Creatine Kinase Cancelled 54 CK-MB (CK-2) 1.05 Troponin I < 0.012 Impressions: Chest X-Ray 01/03/19 21:20 IMPRESSION: No evidence of acute cardiopulmonary disease. Abdomen/Pelvis CT 01/03/19 21:49 IMPRESSION: 1. Findings consistent with a left-sided colitis, most likely an infectious colitis but please correlate clinically. 2. No other acute abnormality. Assessment and Plan - Diagnosis (1) Bacteremia due to Gram-negative bacteria Is this a current diagnosis for this admission?: Yes Plan: 01/04/2019 blood cultures culture 2/2 + for Enterobacter cloacae. Repeat blood cultures negative times 48 hours. Resistant to Augmentin, ampicillin and cefazolin. Received days of IV ertapenem. Switch to IV cefepime and p.o. metronidazole as per ID recommendation. Day 5/7 of antibiotics. No 2D echo recommended as per IDs note. Switch Cipro plus Flagyl p.o. once ready to be discharged home. (2) Colitis Is this a current diagnosis for this admission?: Yes Plan: Improving. TTP on left lower quadrant no guarding guarding. Received days of IV ertapenem. Switch to IV cefepime and p.o. metronidazole as per ID recommendation. Day 5/7 of antibiotics. No 2D echo recommended as per IDs note. Switch Cipro plus Flagyl p.o. once ready to be discharged home. (3) Sepsis Qualifiers: Sepsis type: sepsis due to unspecified organism Qualified Code(s): A41.9 - Sepsis, unspecified organism Is this a current diagnosis for this admission?: Yes Plan: Resolved. Likely due to gram-negative raegan bacteremia. Continue empiric antibiotics. (4) Urinary tract infection Qualifiers: Urinary tract infection type: acute cystitis Hematuria presence: without hematuria Qualified Code(s): N30.00 - Acute cystitis without hematuria Is this a current diagnosis for this admission?: Yes Plan: UA positive on admission. Urine culture -72 hours. Asymptomatic. (5) Guaiac positive stools Is this a current diagnosis for this admission?: No Plan: Likely due to infectious colitis versus GI bleed. Not a candidate for any intervention at this point due to infectious colitis which increases the risk of perforation. H&H stable. Supportive transfusions. She has had a negative colonoscopy several years ago. Outpatient GI and PCP follow-up. (6) History of atrial fibrillation Is this a current diagnosis for this admission?: No Plan: Rate controlled. Continue Cardizem. Hold Eliquis due to recent GI bleed. Repeat stool guaiac pending. If negative Eliquis could be restarted. 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 Also she will need a colonoscopy however at this point she is not a candidate for colonoscopy for due to colitis. Could have a colonoscopy as outpatient once her colitis has resolved. Had a lengthy discussion with patient and daughter and they are in agreement. (7) History of CHF (congestive heart failure) Is this a current diagnosis for this admission?: No Plan: Does not seem to be on acute CHF exacerbation. Monitor volume status. Restarted lisinopril and Lasix. No echo available. Outpatient cardiology follow-up. (8) CHUCK (acute kidney injury) Is this a current diagnosis for this admission?: Yes Plan: Resolved. Likely prerenal due to volume depletion and sepsis on admission. (9) Hypokalemia Is this a current diagnosis for this admission?: Yes Plan: Replaced. CMP tomorrow.
[2019-01-08] MEDS: SIMVASTATIN 40 MG TABLET PO SCH (21:20)
[2019-01-09] MEDS: ACETAMINOPHEN 325 MG TABLET PO PRN (03:25)
[2019-01-09] MEDS: DILTIAZEM HCL 90 MG TABLET PO SCH ×2 (05:17→14:09)
[2019-01-09] MEDS: METRONIDAZOLE 500 MG TABLET PO SCH ×2 (05:17→14:08)
[2019-01-09] MEDS: CEFEPIME 2 GM/D5W RTU 2 GM/50 ML RTUPB IV SCH ×2 (05:17→14:10)
[2019-01-09] MEDS: HEPARIN SOD (PORCINE) 5,000 UNIT/ML 1 ML SYRINGE SUBCUT SCH ×2 (05:17→14:08)
[2019-01-09 06:29] LABS: HEMATOCRIT 34.1 % (36.0-47.0); HEMOGLOBIN 11.6 g/dL (12.0-15.5); MEAN CORPUSCULAR HEMOGLOBIN 30.2 pg (27.0-33.4); MEAN CORPUSCULAR HGB CONC 34.1 g/dL (32.0-36.0); MEAN CORPUSCULAR VOLUME 88 fl (80-97); PLATELET COUNT 186 10^3/uL (150-450); RED BLOOD COUNT 3.86 10^6/uL (3.72-5.28); RED CELL DISTRIBUTION WIDTH 13.5 % (11.5-14.0); WHITE BLOOD COUNT 7.5 10^3/uL (4.0-10.5)
[2019-01-09 06:38] LABS: ALANINE AMINOTRANSFERASE 44 U/L (9-52); ALBUMIN 2.7 g/dL (3.5-5.0); ALKALINE PHOSPHATASE 59 U/L (38-126); ANION GAP 5 (5-19); ASPARTATE AMINO TRANSFERASE 27 U/L (14-36); BILIRUBIN,DIRECT 0.3 mg/dL (0.0-0.4); BILIRUBIN,TOTAL 0.4 mg/dL (0.2-1.3); BLOOD UREA NITROGEN 10 mg/dL (7-20); CARBON DIOXIDE 27 mmol/L (22-30); CHLORIDE 106 mmol/L (98-107); GLUCOSE 117 mg/dL (75-110); POTASSIUM 3.6 mmol/L (3.6-5.0); SODIUM 137.5 mmol/L (137-145); TOTAL PROTEIN 5.2 g/dL (6.3-8.2)
[2019-01-09 06:42] LABS: CALCIUM 8.5 mg/dL (8.4-10.2)
[2019-01-09 07:04] LABS: ABSOLUTE LYMPHOCYTES# (MANUAL) 1.7 10^3/uL (0.5-4.7); ABSOLUTE MONOCYTES # (MANUAL) 0.5 10^3/uL (0.1-1.4); ABSOLUTE NEUTROPHILS# (MANUAL) 5.1 10^3/uL (1.7-8.2); BASOPHILS % (MANUAL) 0 % (0-2); EOSINOPHILS % (MANUAL) 3 % (0-6); LYMPHOCYTES % (MANUAL) 19 % (13-45); METAMYELOCYTES % (MANUAL) 1 % (0); MONOCYTES % (MANUAL) 6 % (3-13); SEGMENTED NEUTROPHILS % (MAN) 67 % (42-78); TOTAL CELLS COUNTED 100
[2019-01-09 07:06] LABS: OVALOCYTES SLIGHT; PLATELET CLUMPS PRESENT; PLATELET LARGE PRESENT; POIKILOCYTOSIS SLIGHT; POLYCHROMASIA SLIGHT; TOXIC GRANULATION SLIGHT
[2019-01-09 07:07] LABS: PLATELET COMMENT ADEQUATE
[2019-01-09] MEDS ORDERED: FUROSEMIDE 20 MG TABLET PO SCH (08:00)
[2019-01-09] MEDS: LISINOPRIL 10 MG TABLET PO SCH (10:59)
--- NOTE | 2019-01-09 17:57 | PDOC DISCHARGE SUMMARY ---
General - Admit/Disc Date/PCP Admission Date/Primary Care Provider: 01/04/19 05:12 Discharge Date: 01/09/19 - Discharge Diagnosis (1) Sepsis Is this a current diagnosis for this admission?: Yes Summary: Due to bacteremia secondary to colitis. Resolved with antibiotics. (2) Bacteremia due to Gram-negative bacteria Is this a current diagnosis for this admission?: Yes Summary: Turned out to be an Enterobacter cloacae. Will treat with oral Cipro and Flagyl per infectious disease recommendations. (3) Colitis Is this a current diagnosis for this admission?: Yes Summary: Possibility that this was ischemic, but she did get pretty sick from it and to get bacteremic. A course of antibiotics she is on will cover her in the event that this was an infectious colitis. (4) GI bleed Is this a current diagnosis for this admission?: Yes Summary: Secondary to her colitis. Her anticoagulation was held. She will be able to resume this when she goes home. (5) Urinary tract infection Is this a current diagnosis for this admission?: Yes Summary: Ruled out - Additional Information Resuscitation Status: Full Code Discharge Diet: Cardiac Discharge Activity: Activity As Tolerated, Balance Activity w/Rest Prescriptions: Ciprofloxacin HCl [Cipro 500 mg Tablet] 500 mg PO BID #14 tablet Metronidazole [Flagyl 500 mg Tablet] 500 mg PO Q8 #21 tablet Home Medications: Amitriptyline HCl [Elavil 25 mg Tablet] 25 mg PO DAILY 09/17/11 Furosemide [Lasix 20 mg Tablet] 20 mg PO QAM 09/17/11 Apixaban [Eliquis 5 mg Tablet] 5 mg PO Q12 01/04/19 Diltiazem HCl [Diltiazem 24Hr Cd] 240 mg PO DAILY 01/04/19 Latanoprost/Pf [Latanoprost 0.005% Eye Drop] 1 drop OU QHS 01/04/19 Umeclidinium Brm/Vilanterol Tr [Anoro Ellipta 62.5-25 Mcg INH] 2 puff IH DAILY 01/04/19 Ciprofloxacin HCl [Cipro 500 mg Tablet] 500 mg PO BID #14 tablet 01/09/19 Lisinopril [Prinivil 40 mg Tablet] 40 mg PO DAILY #0 01/09/19 Metronidazole [Flagyl 500 mg Tablet] 500 mg PO Q8 #21 tablet 01/09/19 History of Present Illness History of Present Illness: MALCOLM MERINO is a 83 year old female whose history is obtained by the record secondary to dementia. History includes dementia, paroxysmal atrial fibrillation on Eliquis, congestive heart failure and COPD. Patient presents with nausea vomiting diarrhea and weakness vomiting gastric content x1 calling EMS she is found to have a blood pressure 80/40 and started on normal saline and brought to the emergency room for evaluation recent medication changes include increased diltiazem for uncontrolled A. fib. Patient is unable to provide meaningful history. She is found to have leukocytosis of 19,000 hypokalemia of 3, a CT abdomen with left-sided colitis. She is hypotensive requiring central line placement and IV fluid resuscitation. She started on empiric antibiotics and referred to the hospitalist for admission. Hospital Course Hospital Course: She was put on empiric IV antibiotics given IV fluids. Her blood cultures wound up turning positive. It turned out to be an Enterobacter. Infectious disease was consulted and recommended treating her with Cipro and Flagyl. She will complete a course of therapy at home. She did have some bleeding and this was attributed to the colitis and the fact that she was on anticoagulant. She did not have any persistent bleeding. She was told that she can resume her anticoagulant when she goes home. She was taken off oxygen and was able to ambulate independently and keep her oxygen saturations in the mid 90s. She was told that for the bleeding, she could pursue a colonoscopy, but that she should probably wait several weeks to get over this episode. Her labs and examination were reassuring she was discharged in good condition. Physical Exam Vital Signs: Temp Pulse Resp BP Pulse Ox 97.9 F 103 H 16 139/72 H 98 01/09/19 07:11 01/09/19 14:00 01/09/19 07:11 01/09/19 07:11 01/09/19 07:11 Intake & Output 01/08/19 01/09/19 01/10/19 06:59 06:59 06:59 Intake Total 945 927 420 Output Total 1300 1000 2 Balance -355 -73 418 Weight 67.8 kg 64.3 kg General appearance: PRESENT: cooperative, disheveled, no acute distress Respiratory exam: PRESENT: clear to auscultation mak, symmetrical, unlabored. ABSENT: accessory muscle use, crackles, prolonged expiratory phase, rhonchi, wheezes Cardiovascular exam: PRESENT: RRR, +S1, +S2 Pulses: PRESENT: normal carotid pulses Vascular exam: PRESENT: normal capillary refill GI/Abdominal exam: PRESENT: Normal bowel sounds, soft. ABSENT: distended, guarding, rebound Extremities exam: ABSENT: clubbing, pedal edema Musculoskeletal exam: PRESENT: normal inspection. ABSENT: deformity Neurological exam: PRESENT: alert, awake, oriented to person, oriented to place, oriented to situation Psychiatric exam: PRESENT: flat affect, normal mood Skin exam: PRESENT: dry, warm Results Laboratory Results: 01/09/19 06:03 01/09/19 06:03 01/09/19 01/09/19 01/09/19 06:03 06:03 12:30 WBC 7.5 RBC 3.86 Hgb 11.6 L Hct 34.1 L MCV 88 MCH 30.2 MCHC 34.1 RDW 13.5 Plt Count 186 Seg Neutrophils % Not Reportable Lymphocytes % Not Reportable Monocytes % Not Reportable Eosinophils % Not Reportable Basophils % Not Reportable Absolute Neutrophils Not Reportable Absolute Lymphocytes Not Reportable Absolute Monocytes Not Reportable Absolute Eosinophils Not Reportable Absolute Basophils Not Reportable Sodium 137.5 Potassium 3.6 Chloride 106 Carbon Dioxide 27 Anion Gap 5 BUN 10 Creatinine 0.79 Est GFR ( Amer) > 60 Est GFR (Non-Af Amer) > 60 Glucose 117 H Calcium 8.5 Total Bilirubin 0.4 AST 27 ALT 44 Alkaline Phosphatase 59 Total Protein 5.2 L Albumin 2.7 L Stool Occult Blood NEGATIVE 01/03/19 01/03/19 01/04/19 23:35 23:39 01:05 Creatine Kinase Cancelled 54 CK-MB (CK-2) 1.05 Troponin I < 0.012 Impressions: Chest X-Ray 01/03/19 21:20 IMPRESSION: No evidence of acute cardiopulmonary disease. Abdomen/Pelvis CT 01/03/19 21:49 IMPRESSION: 1. Findings consistent with a left-sided colitis, most likely an infectious colitis but please correlate clinically. 2. No other acute abnormality. Qualifiers - * PATIENT BEING DISCHARGED WITH ANY OF THE FOLLOWING DIAGNOSIS: No
[2019-01-09 18:16] VITALS: BP 152/85
== END 2019-01-09 19:47 | disposition home or self-care (01) | DRG 872 ==
LOC: ER 21:09 → EH 01-04 05:12 → 3S 01-04 15:40
PROVIDERS: ADMIT Internal Medicine; ATTEND Internal Medicine
PROC: 02HV33Z Insertion of Infusion Device into Superior Vena Cava, Percutaneous Approach (ICD-10-PCS; principal; 2019-01-04)
PROC: 3E0F73Z Introduction of Anti-inflammatory into Respiratory Tract, Via Natural or Artificial Opening (ICD-10-PCS; 2019-01-04)
DX: A41.50 Gram-negative sepsis, unspecified (principal); A09 Infectious gastroenteritis and colitis, unspecified; K55.9 Vascular disorder of intestine, unspecified; K92.2 Gastrointestinal hemorrhage, unspecified; N17.9 Acute kidney failure, unspecified; E87.6 Hypokalemia; K52.9 Noninfective gastroenteritis and colitis, unspecified; F03.90 Unspecified dementia, unspecified severity, without behavioral disturbance, psychotic disturbance, mood disturbance, and anxiety; I48.0 Paroxysmal atrial fibrillation; J44.9 Chronic obstructive pulmonary disease, unspecified; I50.9 Heart failure, unspecified; I11.0 Hypertensive heart disease with heart failure; Z79.01 Long term (current) use of anticoagulants; Z90.710 Acquired absence of both cervix and uterus; Z79.899 Other long term (current) drug therapy; Z79.82 Long term (current) use of aspirin
CPT/HCPCS: 36415; 51701; 71045; 74177; 80048; 80053; 81001; 82272; 82550; 82553; 82803; 83605; 83690; 83735; 84484; 85025; 87040; 87077; 87086; 87186; 87493; 93005; 93010; 96365; 96366; 96375; 99285; C1751; J0692; J0696; J1335; J1644; J2270; J3475; J3480; J3490; J7030; S0164